=== PATIENT | male | born 1985 | race Hispanic/Latino ===

== ENCOUNTER 2019-06-27 22:27 | Emergency (ER) | payer OTHER ==
--- NOTE | 2019-06-28 01:57 | Emergency Department Report ---
- General Chief Complaint: Upper Respiratory Infection Stated Complaint: FLU LIKE SYMPTOMS Time Seen by Provider: 06/28/19 01:41 Source: patient Mode of arrival: Ambulatory Limitations: No Limitations - Related Data Previous Rx's Medication Instructions Recorded Last Taken Type ALBUTEROL NEB's [Proventil 0.083% 2.5 mg IH TID PRN #14 neb 06/28/19 Unknown Rx NEBS] Albuterol INH(or & Nicu Only) 2 puff IH QID PRN #1 inhalation 06/28/19 Unknown Rx [ProAir HFA Inhaler] DOXYCYCLINE Hyclate [Vibramycin 100 mg PO BID #28 capsule 06/28/19 Unknown Rx CAP] guaiFENesin/CODEINE [Robitussin AC] 5 ml PO Q6H PRN #120 ml 06/28/19 Unknown Rx Allergies Allergy/AdvReac Type Severity Reaction Status Date / Time azithromycin [From Zithromax] Allergy Anaphylaxis Verified 06/28/19 00:29 cephalexin [From Keflex] Allergy Anaphylaxis Verified 06/28/19 00:29 ciprofloxacin [From Cipro] Allergy Anaphylaxis Verified 06/28/19 00:29 sulfamethoxazole Allergy Anaphylaxis Verified 06/28/19 00:29 [From Bactrim] trimethoprim [From Bactrim] Allergy Anaphylaxis Verified 06/28/19 00:29 -cillins Allergy Anaphylaxis Uncoded 06/28/19 00:29 bioxin Allergy Anaphylaxis Uncoded 06/28/19 00:29 ED Review of Systems ROS: Stated complaint: FLU LIKE SYMPTOMS Other details as noted in HPI ED Past Medical Hx - Past Medical History Previous Medical History?: Yes Hx Hypertension: Yes Hx Diabetes: Yes Hx Asthma: Yes - Surgical History Past Surgical History?: Yes Additional Surgical History: L knee sx x3 2018. R knee sx x2 2017 - Social History Smoking Status: Never Smoker Substance Use Type: None - Medications Home Medications: Home Medications Medication Instructions Recorded Confirmed Last Taken Type ALBUTEROL NEB's [Proventil 0.083% 2.5 mg IH TID PRN #14 neb 06/28/19 Unknown Rx NEBS] Albuterol INH(or & Nicu Only) 2 puff IH QID PRN #1 inhalation 06/28/19 Unknown Rx [ProAir HFA Inhaler] DOXYCYCLINE Hyclate [Vibramycin 100 mg PO BID #28 capsule 06/28/19 Unknown Rx CAP] guaiFENesin/CODEINE [Robitussin AC] 5 ml PO Q6H PRN #120 ml 06/28/19 Unknown Rx ED Physical Exam - General Limitations: No Limitations ED Course Vital Signs 06/27/19 06/28/19 23:33 00:59 Temperature 99.1 F Pulse Rate 71 Respiratory 20 Rate Blood Pressure 152/108 150/106 O2 Sat by Pulse 96 Oximetry Critical care attestation.: If time is entered above; I have spent that time in minutes in the direct care of this critically ill patient, excluding procedure time. ED Disposition Clinical Impression: Bronchitis Disposition: [id number] TO HOME OR SELFCARE Is pt being admited?: No Does the pt Need Aspirin: No Condition: Stable Instructions: Chronic Bronchitis (ED), Acute Bronchitis (ED) Prescriptions: Albuterol INH(or & Nicu Only) [ProAir HFA Inhaler] 2 puff IH QID PRN #1 inhalation PRN Reason: Shortness Of Breath ALBUTEROL NEB's [Proventil 0.083% NEBS] 2.5 mg IH TID PRN #14 neb PRN Reason: Wheezing guaiFENesin/CODEINE [Robitussin AC] 5 ml PO Q6H PRN #120 ml PRN Reason: Cough DOXYCYCLINE Hyclate [Vibramycin CAP] 100 mg PO BID #28 capsule Referrals: MARCOS CRAFT MD [Primary Care Provider] - 3-5 Days
[2019-06-28 02:14] VITALS: BP 138/98
== END 2019-06-28 02:15 | disposition home or self-care (01) ==
LOC: ED 22:27
DX: J40 Bronchitis, not specified as acute or chronic (principal); I10 Essential (primary) hypertension; E11.9 Type 2 diabetes mellitus without complications; Z79.899 Other long term (current) drug therapy; Z88.1 Allergy status to other antibiotic agents; Z88.2 Allergy status to sulfonamides; Z88.8 Allergy status to other drugs, medicaments and biological substances
CPT/HCPCS: 99282